=== PATIENT | male | born 1985 | race Two or more races ===

== ENCOUNTER 2019-11-16 01:53 | Emergency (ER) | payer MEDICAID, OTHER ==
[~2019-11-16] VITALS: Ht 177.8 cm; Wt 68.0 kg
[2019-11-16 02:20] VITALS: BP 108/74
[2019-11-16] MEDS ORDERED: ONDANSETRON 4 MG TAB.RAPDIS ONE (02:59)
[2019-11-16] MEDS ORDERED: CYCLOBENZAPRINE 10 MG TABLET ONE (02:59)
[2019-11-16] MEDS ORDERED: HYDROMORPHONE INJ 2 MG/ML DISP.SYRIN ONE (02:59)
[2019-11-16] MEDS ORDERED: ONDANSETRON 4 MG TAB.RAPDIS SL ONE (03:00)
[2019-11-16] MEDS ORDERED: HYDROMORPHONE INJ 2 MG/ML DISP.SYRIN IM ONE (03:00)
[2019-11-16] MEDS ORDERED: CYCLOBENZAPRINE 10 MG TABLET PO ONE (03:00)
--- NOTE | 2019-11-16 03:10 | NUR ---
Patient discharged to home in stable condition. Rx and Written and verbal after care instructions given. Patient verbalizes understanding of instruction.
== END 2019-11-16 03:16 | disposition home or self-care (01) ==
LOC: ER 01:54
DX: S13.4XXA Sprain of ligaments of cervical spine, initial encounter (principal); M62.838 Other muscle spasm; M54.12 Radiculopathy, cervical region; F17.200 Nicotine dependence, unspecified, uncomplicated; X50.0XXA Overexertion from strenuous movement or load, initial encounter; Y93.89 Activity, other specified; Y92.89 Other specified places as the place of occurrence of the external cause; Y99.8 Other external cause status
CPT/HCPCS: 96372; 99283; 99406; J1170; Q0162